=== PATIENT | male | born 1955 | race Caucasian/White ===

== ENCOUNTER 2018-04-14 03:04 | Emergency (ER) | payer MEDICAID ==
[~2018-04-14] VITALS: Ht 172.7 cm; Wt 127.0 kg
[~2018-04-14 03:04] MED LIST: HYDR25TA4 PO; LEVO200T9 PO; LISI10TA5 PO; SIMV10TA6 PO
[2018-04-14 03:33] LABS: BASOPHILS # (AUTO) 0.1 K/uL (0.0-8.0); BASOPHILS % (AUTO) 0.9 % (0.0-2.0); EOSINOPHILS # (AUTO) 0.2 K/uL (0.0-0.7); EOSINOPHILS % (AUTO) 2.4 % (0.0-7.0); HEMATOCRIT 37.3 % (36.7-47.1); HEMOGLOBIN 12.8 g/dL (12.5-16.3); LYMPHOCYTES # (AUTO) 1.6 K/uL (20.0-40.0); LYMPHOCYTES % (AUTO) 21.2 % (20.5-51.5); MEAN CORPUSCULAR HEMOGLOBIN 32.7 uug (23.8-33.4); MEAN CORPUSCULAR HGB CONC 34 g/dL (32.5-36.3); MEAN CORPUSCULAR VOLUME 95.6 fL (73.0-96.2); MONOCYTES # (AUTO) 0.6 K/uL (2.0-10.0); MONOCYTES % (AUTO) 7.6 % (0.0-11.0); NEUTROPHILS # (AUTO) 5.2 K/uL (1.8-8.9); NEUTROPHILS % (AUTO) 67.9 % (38.5-71.5); PLATELET COUNT (AUTO) 185 K/uL (152-348); WHITE BLOOD COUNT (AUTO) 7.7 K/uL (3.6-10.2)
[2018-04-14 03:42] LABS: CREATININE 1.2 mg/dL (0.6-1.3); POTASSIUM 3.6 mmol/L (3.5-5.1)
[2018-04-14 03:55] LABS: BILIRUBIN,DIRECT 0.2 mg/dL (0.0-0.2); BILIRUBIN,TOTAL 0.4 mg/dL (0.2-1.0); TOTAL PROTEIN, SERUM 7.5 g/dL (6.4-8.2)
[2018-04-14] MEDS ORDERED: FUROSEMIDE 20 MG/2 ML VIAL ONE (04:15)
[2018-04-14] MEDS ORDERED: NITROGLYCERIN OINT 1 GM PACKET TP ONE ×2 (04:15→04:16)
[2018-04-14] MEDS ORDERED: FUROSEMIDE 20 MG/2 ML VIAL IV ONE (04:15)
--- NOTE | 2018-04-14 04:18 | NUR ---
Paged [facility] for panel call. Pending call back from ARINA Rhodes.
--- NOTE | 2018-04-14 04:24 | NUR ---
KELVIN KISER speaking to Ridge Rhodes NP ([facility])
--- NOTE | 2018-04-14 04:25 | NUR ---
Pt. admitted to Telemetry , under care of Meagan Sanford NP. Dx: CHF Belongs List completed
--- NOTE | 2018-04-14 04:29 | NUR ---
Report given to Patricia AVELAR on Telemetry
[2018-04-14] MEDS ORDERED: ALBUTEROL SULFATE 2.5 MG/3 ML NEBU NEB ONE (04:30)
[2018-04-14] MEDS ORDERED: IPRATROPIUM BROMIDE 0.5 MG/2.5 ML NEBU NEB ONE (04:30)
[2018-04-14 04:41] LABS: ABG BASE EXCESS 3.1 mmol/L; ABG PCO2 49.3 mmHg (35.0-45.0); ABG PH 7.387 (7.350-7.450); ABG PO2 64.7 mmHg (75.0-100.0); ABG SITE LEFT RADIAL; ABG TOTAL HEMOGLOBIN 12.9 G/dL (13.5-18.0); COHb 1.5 % (0.5-1.5); MetHb 0.3 % (0.0-1.5); O2Hb 89.4 % (94.0-97.0); VENT MODE Nasal Cannula
[2018-04-14 04:45] VITALS: BP 141/94
[2018-04-14] MEDS ORDERED: IPRATROPIUM BROMIDE 0.5 MG/2.5 ML NEBU NEB PRN (04:45)
[2018-04-14] MEDS ORDERED: ZOLPIDEM 5 MG TABLET PO PRN (04:45)
[2018-04-14] MEDS ORDERED: hydrALAZINE HCL 20 MG/1 ML VIAL IV PRN (04:45)
[2018-04-14] MEDS ORDERED: MAGNESIUM HYDROXIDE 30 ML LIQUID UDC PO PRN (04:45)
[2018-04-14] MEDS ORDERED: HYDROCODONE/APAP 5-325MG TABLET PO PRN (04:45)
[2018-04-14] MEDS ORDERED: ONDANSETRON 4 MG/2 ML VIAL IV PRN (04:45)
[2018-04-14] MEDS ORDERED: MORPHINE SULFATE 4 MG/1 ML DISP.SYRIN IV PRN (04:45)
[2018-04-14] MEDS ORDERED: ALBUTEROL SULFATE 2.5 MG/ 0.5 ML NEBU NEB PRN (04:45)
[2018-04-14] MEDS ORDERED: ACETAMINOPHEN 325 MG TABLET PO PRN (04:45)
[2018-04-14 05:47] LABS: MAGNESIUM 2.1 mg/dL (1.8-2.4); PHOSPHOROUS 3.3 mg/dL (2.5-4.9)
--- NOTE | 2018-04-14 06:00 | NUR ---
AT 0530 RECEIVED PT FROM ER. AT 0600, ADMISSION PROCESS STARTED AND UPON CHECKING PATIENT BELONGINGS, PATIENT FOUND TO HAVE A BOX FULL OF MARSHALL AND TWO SMALL POUCHES CONTAINING WHITE SUBSTANCES FROM POCKET OF HIS PANTS. PATIENT GOT UPSET WHEN BELONGINGS WERE BEING CHECKED AND STATED "THIS IS SILLY. ILL JUST LEAVE". CLARIFIED TO PATIENT IF HE WANTS TO GO AMA, AND STATED "YES". PATIENT MADE AWARE THAT TWO SMALL POUCHES WITH WHITE SUBSTANCE WILL BE TURNED TO SECURITY, PATIENT VERBALIZED "DO WHAT YOU HAVE TO DO WITH IT." CHARGE NURSE PRESENT AT THIS TIME. JOB PRESS FEEDERRENY D. NOTIFIED PATIENT WANTS TO GO AMA, NO NEW ORDERS RECEIVED. APPROPRIATE PAPERS SIGNED. NAME BAND AND IV REMOVED. PATIENT LEFT HOSPITAL IN APPARENT FAIR CONDITION.
[2018-04-14] MEDS ORDERED: HYDROCHLOROTHIAZIDE 25 MG TABLET PO SCH (09:00)
[2018-04-14] MEDS ORDERED: ASPIRIN EC 81 MG TABLET.DR PO SCH (09:00)
[2018-04-14] MEDS ORDERED: LISINOPRIL 10 MG TABLET PO SCH (09:00)
== END 2018-04-14 04:41 | disposition left against medical advice (07) ==
LOC: ER 03:06 → UNDOADMIN 04:25 → TELE 04:25 → UNDODISIN 06:00
DX: I11.0 Hypertensive heart disease with heart failure (principal); J96.01 Acute respiratory failure with hypoxia; I50.9 Heart failure, unspecified; F15.90 Other stimulant use, unspecified, uncomplicated; E78.00 Pure hypercholesterolemia, unspecified; Z82.49 Family history of ischemic heart disease and other diseases of the circulatory system; Z79.899 Other long term (current) drug therapy; G47.30 Sleep apnea, unspecified
CPT/HCPCS: 36415; 36600; 70030-TC; 71045; 83735; 84100; 85025; 93005; 94664; A4663; G0378; J1940; J3590